=== PATIENT | female | born 1990 | race Caucasian/White ===

== ENCOUNTER 2018-10-25 15:41 | Emergency (ER) | payer OTHER ==
[2018-10-25 17:24] VITALS: BP 114/75
--- NOTE | 2018-10-25 18:08 | UC ---
Neck Pain HPI - HPI Summary HPI Summary: AFTER WORK YESTERDAY AFTERNOON PATIENT TOOK A NAP. WHEN SHE WOKE UP SHE HAD POSTERIOR NECK PAIN. SHE STRETCHED HER NECK AND FELT A CRACK AT WHICH POINT THE PAIN WORSENED. IT FEELS NO BETTER TODAY SO SHE CAME IN FOR EVALUATION. FADIA HELPS. - History of Current Complaint Chief Complaint: UCUpperExtremity Stated Complaint: muscle strain Time Seen by Provider: 10/25/18 17:47 Hx Obtained From: Patient, Family/Receipt And Report Clerk - MOM Hx Last Menstrual Period: 1 week Mechanism Of Injury: No Known Trauma Timing: Constant Onset/Duration: Gradual Onset, Lasting Hours Severity: Moderate Pain Intensity: 4 Pain Scale Used: 0-10 Numeric Character: Dull Aggravating Factors: Movement Alleviating Factors: OTC Meds - ALEVE Associated Signs & Symptoms: Positive: Negative - Allergies/Home Medications Allergies/Adverse Reactions: Allergies Allergy/AdvReac Type Severity Reaction Status Date / Time No Known Allergies Allergy Verified 10/25/18 17:25 Home Medications: Home Medications Bupropion XL* [Wellbutrin XL *] 300 mg PO DAILY 10/25/18 [History Confirmed 02/03] FLUoxetine CAP* [Prozac CAP*] 30 mg PO DAILY 10/25/18 [History Confirmed ] PMH/Surg Hx/FS Hx/Imm Hx Psychological History: Anxiety, Depression - Surgical History Surgical History: None - Family History Known Family History: Positive: Non-Contributory - Social History Alcohol Use: None Substance Use Type: None Smoking Status (MU): Never Smoked Tobacco Review of Systems All Other Systems Reviewed And Are Negative: Yes Constitutional: Positive: Negative Skin: Positive: Negative Respiratory: Positive: Negative Cardiovascular: Positive: Negative Gastrointestinal: Positive: Negative Musculoskeletal: Positive: Arthralgia, Decreased ROM Physical Exam Triage Information Reviewed: Yes Appearance: Well-Appearing, No Pain Distress, Well-Nourished Vital Signs: Initial Vital Signs Temp 99 F 10/25/18 17:16 Pulse 84 10/25/18 17:16 Resp 17 10/25/18 17:16 BP 114/75 10/25/18 17:16 Pulse Ox 98 10/25/18 17:16 Vital Signs Reviewed: Yes Eyes: Positive: Conjunctiva Clear ENT: Positive: Hearing grossly normal Neck: Positive: Supple, No Lymphadenopathy, Tenderness @ - DIFFUSELY OVER BACK OF NECK Respiratory: Positive: No respiratory distress, No accessory muscle use Cardiovascular: Positive: Pulses Normal Abdomen Description: Positive: Soft Musculoskeletal: Positive: No Edema, ROM Limited @ - NECK Neurological: Positive: Alert Psychological: Positive: Normal Response To Family, Age Appropriate Behavior Skin: Negative: Rashes Diagnostics - Radiology C-SPINE XRAYS Radiology Interpretation Completed By: ED Physician Summary of Radiographic Findings: STRAIGHTENING OF CERVICAL LORDOSIS. NO FRACTURE Neck Pain Course/Dx - Course Course Of Treatment: LOW SUSPICION FOR ACUTE BONY INJURY BASED ON PRESENTATION AND HISTORY. PATIENT DECLINES CT SCAN TODAY. C-SPINE X-RAYS SHOW STRAIGHTENING OF THE NORMAL CERVICAL LORDOSIS BUT NO ACUTE FRACTURE ON MY INITIAL INTERPRETATION. RADIOLOGY READ IS PENDING. SUSPECT MUSCLE STRAIN FROM SLEEPING AWKWARDLY YESTERDAY. ADVISED TO CONTINUE TAKING OTC ANTI-INFLAMMATORIES. FLEXERIL PRESCRIBED FOR HER TO TAKE AT NIGHT IF NEEDED. FOLLOW-UP WITH PCP IF SHE IS NOT IMPROVING EXPECTED OVER THE NEXT WEEK OR SO. TO THE ER WITHOUT FAIL IF SYMPTOMS WORSEN. - Differential Dx/Diagnosis Provider Diagnosis: Cervical strain, acute Discharge - Sign-Out/Discharge Documenting (check all that apply): Patient Departure All imaging exams completed and their final reports reviewed: No - Discharge Plan Condition: Stable Disposition: HOME Prescriptions: Cyclobenzaprine TAB* [Flexeril TAB*] 10 mg PO BID PRN #30 tab PRN Reason: Pain Patient Education Materials: Cervical Strain (ED) Referrals: [facility] [address] [Outside] - If Needed Additional Instructions: CERVICAL SPINE X-RAY SHOWS STRAIGHTENING OF THE NORMAL CERVICAL LORDOSIS BUT OTHERWISE UNREMARKABLE ON MY INITIAL INTERPRETATION. WE WILL CALL YOU TOMORROW IF THE OFFICIAL RADIOLOGY READ DIFFERS. YOUR SYMPTOMS ARE LIKELY DUE TO MUSCLE STRAIN IN YOUR NECK. REST, IBUPROFEN NEEDED FOR DISCOMFORT. TAKE FLEXERIL AT NIGHT BEFORE BED. BE SURE TO GO THROUGH SLOW RANGE OF MOTION AND STRETCHING EXERCISES DAILY TO PREVENT STIFFENING UP AND MAKING THE DISCOMFORT WORSE. FOLLOW-UP WITH A PCP IF YOUR SYMPTOMS DO NOT IMPROVE OVER THE NEXT WEEK OR SO. YOU MAY BENEFIT FROM MORE ADVANCED IMAGING AT THAT TIME. CALL THE NUMBER BELOW FOR ASSISTANCE IN ESTABLISHING WITH A PCP An additional resource available to assist in finding the appropriate physician for your health care needs is [facility] ([facility]). You may contact them by calling [phone]. - Billing Disposition and Condition Condition: STABLE Disposition: Home
== END 2018-10-25 19:25 | disposition home or self-care (01) ==
LOC: UCEAST 15:41
DX: S16.1XXA Strain of muscle, fascia and tendon at neck level, initial encounter (principal); X50.9XXA Other and unspecified overexertion or strenuous movements or postures, initial encounter; Y92.013 Bedroom of single-family (private) house as the place of occurrence of the external cause; F41.9 Anxiety disorder, unspecified; F32.9 Major depressive disorder, single episode, unspecified
CPT/HCPCS: 72040; 99203; G0463

== ENCOUNTER 2020-04-18 17:39 | Observation (INO) ==
[2020-04-18] MEDS ORDERED: NS 0.9% 1000 ml BAG 1,000 ML IV ONE ×2 (19:25→21:48)
[2020-04-18] MEDS ORDERED: Ondansetron 4 mg VIAL 2 MG/ML 2 ml VIAL IV ONE (19:25)
[2020-04-18] MEDS ORDERED: Pantoprazole VIAL 40 MG VIAL IV ONE (19:26)
[2020-04-18] MEDS ORDERED: Ondansetron 4 mg VIAL 2 MG/ML 2 ml VIAL ONE (20:58)
[2020-04-18 21:19] LABS: ABS Eosinophils 0.2 10^3/ul (0-0.6); ABS Lymphocytes 1.9 10^3/ul (1.0-4.8); ABS Monocytes 0.6 10^3/ul (0-0.8); ABS Neutrophils 6.9 10^3/ul (1.5-7.7); Eosinophil % 1.9 %; Hematocrit 41 % (35-47); Hemoglobin 14.3 g/dL (12.0-16.0); Lymphocyte % 19.7 %; Mean Corpuscular HGB Conc 35 g/dL (31-36); Mean Corpuscular Hemoglobin 31 pg (27-31); Mean Corpuscular Volume 89 fL (80-97); Mean Platelet Volume 8.4 fL (7.4-10.4); Nucleated Red Blood Cells % 0.1; Platelet Count 320 10^3/uL (150-450); Red Blood Count 4.56 10^6 /uL (3.70-4.87); Red Cell Distribution Width 13 % (10-15); White Blood Count 9.7 10^3/uL (3.5-10.8)
[2020-04-18 21:26] LABS: Urine Appearance Clear; Urine Bilirubin Negative (Negative); Urine Blood Negative (Negative); Urine Color Amber; Urine Glucose Negative (Negative); Urine Ketones 1+ (Negative); Urine Nitrite Negative (Negative); Urine Protein 1+(30 mg/dL) (Negative); Urine Specific Gravity 1.032 (1.010-1.030); Urine Urobilinogen Negative (Negative)
[2020-04-18 21:35] LABS: ALT 14 U/L (7-52); Albumin 4.4 g/dL (3.2-5.2); Albumin/Globulin Ratio 1.4 (1-3); Alkaline Phosphatase 84 U/L (34-104); BUN/Creatinine Ratio 19.2 (8-20); Blood Urea Nitrogen 15 mg/dL (6-24); CO2 Carbon Dioxide 24 mmol/L (22-32); Calcium 9.3 mg/dL (8.6-10.3); Chloride 105 mmol/L (101-111); EGFR African American 106.4 (>60); EGFR Non-African American 87.9 (>60); Globulin 3.1 g/dL (2-4); Glucose 87 mg/dL (70-100); Lipase 17 U/L (11.0-82.0); Sodium 138 mmol/L (135-145); Total Protein 7.5 g/dL (6.4-8.9)
[2020-04-18 21:41] LABS: HCG Pregnancy < 0.60 mIU/mL
[2020-04-18] MEDS ORDERED: Iohexol 300 (CONTRAST) 10 ML SDV IV ONE (21:58)
[2020-04-18 22:02] LABS: Urine Bacteria Absent (Absent); Urine Red Blood Cell Trace(0-2/hpf) (Absent); Urine Squamous Epithelial Cell Present (Absent); Urine White Blood Cell Trace(0-5/hpf) (Absent)
[2020-04-18 22:38] LABS: AST 14 U/L (13-39); Anion Gap 9 mmol/L (2-11); Potassium 3.9 mmol/L (3.5-5.0)
[2020-04-18] MEDS ORDERED: Piperacillin/Tazobac ADVAN 3.375 GM in NS 0.9% 100 ml BAG 100 ML IV ONE (23:36)
[2020-04-18] MEDS ORDERED: Ondansetron 4 mg VIAL 2 MG/ML 2 ml VIAL IV PRN (23:43)
[2020-04-18] MEDS ORDERED: HYDROmorphone 1 MG/1 ML SYRINGE IV SLOW PU PRN (23:43)
[2020-04-18] MEDS ORDERED: NS 0.9% 1000 ml BAG 1,000 ML IV SCH (23:45)
[2020-04-19] MEDS ORDERED: Zosyn per Pharmacy NOTE FOLLOW UP PRN (03:50)
[2020-04-19] MEDS ORDERED: Piperacillin/Tazobactam VIAL 3.375 GM in NS 0.9% 100 ml BAG 100 ML IVPB SCH (04:30)
[2020-04-19] MEDS ORDERED: Dexamethasone IV 4 MG/ML VIAL 1 ml VIAL ONE (12:09)
[2020-04-19] MEDS ORDERED: Rocuronium 50 mg VIAL 10 mg/ml 5 ml VIAL (50 mg) ONE (12:09)
[2020-04-19] MEDS ORDERED: Propofol 10 MG/ML 20 ML BTL ONE (12:09)
[2020-04-19] MEDS ORDERED: Lidocaine 2% PF 5 ML VIAL ONE (12:09)
[2020-04-19] MEDS ORDERED: fentaNYL 100 mcg/2 ml 50 MCG/ML VIAL ONE (12:09)
[2020-04-19] MEDS ORDERED: Midazolam 5 mg/5 ml VIAL 1 mg/ml 5 ml VIAL (5 mg) ONE (12:09)
[2020-04-19] MEDS ORDERED: Ondansetron 4 mg VIAL 2 MG/ML 2 ml VIAL ONE ×2 (12:09→15:39)
[2020-04-19] MEDS ORDERED: Bupivacaine 0.5% 50 ML MDV VIAL ONE (12:19)
[2020-04-19] MEDS ORDERED: ceFAZolin 2 GM PREMIX 2 GM/50 ML BAG ONE (12:32)
[2020-04-19] MEDS ORDERED: Famotidine IV 10 MG/ML 2 ml VIAL (20 mg) ONE (12:33)
[2020-04-19] MEDS ORDERED: fentaNYL 100 mcg/2 ml 50 MCG/ML VIAL IV PRN (13:14)
[2020-04-19] MEDS ORDERED: Ondansetron 4 mg VIAL 2 MG/ML 2 ml VIAL IV PRN (13:14)
[2020-04-19] MEDS ORDERED: Naloxone 0.4 mg VIAL 0.4 mg/ml 1 ml VIAL IV PRN (13:14)
[2020-04-19] MEDS ORDERED: Sugammadex 500 MG/5 ML 5 ml VIAL IV PUSH ONE (13:35)
[2020-04-19 16:51] VITALS: BP 113/74
== END 2020-04-19 16:35 | disposition home or self-care (01) ==
LOC: SSU 17:39 → ED 17:39 → SSU 04-19 04:37
PROVIDERS: ADMIT Surgery; ATTEND Surgery